=== PATIENT | female | born 1995 | race Caucasian/White ===

== ENCOUNTER 2017-04-12 18:04 | Emergency (ER) | payer SELFPAY ==
[~2017-04-12] VITALS: Ht 157.5 cm; Wt 61.4 kg
[2017-04-12 18:07] VITALS: BP 111/61; TEMP 98.1
[2017-04-12 19:23] VITALS: PULSE 61
== END 2017-04-12 19:24 | disposition home or self-care (01) ==
LOC: COL.ER 18:04
DX: S06.9X9A Unspecified intracranial injury with loss of consciousness of unspecified duration, initial encounter (principal); S80.02XA Contusion of left knee, initial encounter; V49.9XXA Car occupant (driver) (passenger) injured in unspecified traffic accident, initial encounter